=== PATIENT | female | born 1970 | race Two or more races ===

== ENCOUNTER → 2024-03-07 | Outpatient (CLI) | payer OTHER, MEDICAID, SELFPAY ==
--- NOTE | 2024-03-07 13:15 | XR_ITS ---
Examination: Screening digital mammography, bilateral Computer aided detection 3-D breast Tomosynthesis, bilateral Date and time of exam: March 07, 2024 1308 hours Compared to mammograms dating to January 10, 2019 Indication: Screening Technique: Nonmagnified MLO, CC views of the breasts to been obtained, reconstructed from 3-D Tomosynthesis images. R2 computer aided detection program utilized for evaluation of suspicious masses and/or abnormal calcifications. 3-D Tomosynthesis images obtained. Findings: Scattered areas of fibroglandular density. Skin lesion upper outer left breast Benign calcifications. 10 mm round asymmetry upper outer left breast IMPRESSION: BI-RADS Category 0: Incomplete: Need additional imaging evaluation 10 mm round asymmetry upper outer left breast, recommend follow-up spot tomographic views of this asymmetry as well as left breast sonography to complete the workup
== END | disposition home or self-care (01) ==
LOC: CDIM 13:02
PROVIDERS: PCP Registered Nurse Community Health; Referring Provider Registered Nurse Community Health; Visit Provider Registered Nurse Community Health
DX: Z12.31 Encounter for screening mammogram for malignant neoplasm of breast (principal); R92.8 Other abnormal and inconclusive findings on diagnostic imaging of breast; N64.89 Other specified disorders of breast
CPT/HCPCS: 77063; 77067

== ENCOUNTER → 2024-05-06 | Outpatient (CLI) | payer OTHER, MEDICAID, SELFPAY ==
--- NOTE | 2024-05-06 14:15 | XR_ITS ---
Examination: Breast ultrasound, unilateral, left complete Date and time of exam: May 06, 2024 at 1435 hours INDICATIONS: Mammogram March 07, 2024 10 mm focal asymmetry upper outer left breast Technique: Real-time mariano scale ultrasonographic imaging performed left breast including all 4 quadrants as well as nipple retroareolar and axillary region. Findings: 1:00 cyst 7 x 4 mm 2:00 cyst 8 x 8 mm 9:00 oval mass circumscribed 3 x 3 mm 11:00 cyst 3 x 3 mm IMPRESSION: BI-RADS Category 2: Benign findings
--- NOTE | 2024-05-06 14:45 | XR_ITS ---
Examination: Diagnostic digital mammography, unilateral, left Computer aided detection 3-D breast Tomosynthesis, unilateral Date and time of exam: May 06, 2024 1453 hours INDICATIONS: Mammogram March 07, 2024, 10 mm round asymmetry upper outer left breast Technique: Nonmagnified MLO, CC views of the left breast have been obtained, reconstructed from 3-D Tomosynthesis images. R2 computer aided detection program utilized for evaluation of suspicious masses and/or abnormal calcifications. 3-D Tomosynthesis images obtained. Findings: Scattered areas of fibroglandular density No suspicious nodules noted Impression: BI-RADS category 2: Benign findings Return to yearly follow-up mammography Please see the left breast sonogram report today indicating 6 month left breast sonogram follow-up needed
== END | disposition home or self-care (01) ==
LOC: CDIM 14:17
PROVIDERS: Referring Provider Registered Nurse Community Health; Visit Provider Registered Nurse Community Health
DX: R92.322 Mammographic fibroglandular density, left breast (principal); N60.02 Solitary cyst of left breast
CPT/HCPCS: 76641; 77061; 77065; G0279